=== PATIENT | male | born 1995 | race Caucasian/White ===

== ENCOUNTER 2020-02-26 18:59 | Emergency (ER) | payer MEDICAID, OTHER ==
[~2020-02-26] VITALS: Ht 200.7 cm; Wt 144.3 kg
[2020-02-26] MEDS ORDERED: normal saline 1000ML IV soln IVB ONE (19:05)
[2020-02-26] MEDS ORDERED: LORazepam 2 mg/ml vial IV ONE (19:05)
[2020-02-26 19:26] LABS: BASOPHILS # (AUTO) 0.1 X10'3 (0-0.2); BASOPHILS % (AUTO) 0.9 % (0-1); EOSINOPHILS # (AUTO) 0.1 X10'3 (0-0.9); EOSINOPHILS % (AUTO) 1.1 % (0-6); HEMATOCRIT 44.9 % (42.0-52.0); HEMOGLOBIN 15.5 g/dl (14.0-17.9); LYMPHOCYTES # (AUTO) 2.7 X10'3 (1.1-4.8); LYMPHOCYTES % (AUTO) 23.9 % (21-51); MEAN CORPUSCULAR HEMOGLOBIN 30.7 PG (27.0-31.0); MEAN CORPUSCULAR HGB CONC 34.6 g/dL (33.0-36.5); MEAN CORPUSCULAR VOLUME 88.8 FL (78-98); MEAN PLATELET VOLUME 7.7 FL (7.4-10.4); MONOCYTES # (AUTO) 0.7 X10'3 (0-0.9); MONOCYTES % (AUTO) 6.2 % (2-12); NEUTROPHILS # (AUTO) 7.7 X10'3 (1.8-7.7); NEUTROPHILS % (AUTO) 67.9 % (42-75); PLATELET COUNT 349 X10'3 (140-440); RED BLOOD COUNT 5.06 X10'6 (4.70-6.10); RED CELL DISTRIBUTION WIDTH 14.7 % (11.5-14.5); WHITE BLOOD COUNT 11.4 X10'3 (4.5-11.0)
--- NOTE | 2020-02-26 19:30 | NUR ---
PT WITH HR OF 150'S, AND RR 40, [place]IL[place] AWARE. GIVEN ATIVAN 1 MG 10 MIN AGO. 1 LITER NS INFUSING. PT IS A&OX4. REPORTS HX OF ANXIETY AND DEPRESSION AND HX OF FAST HR. TAKES NO MEDS.
[2020-02-26] MEDS ORDERED: NO HOME MEDS (19:31)
[2020-02-26 19:42] LABS: ALANINE AMINOTRANSFERASE 24 U/L (12-78); ALBUMIN 4.7 G/DL (3.4-5.0); ALBUMIN/GLOBULIN RATIO 1.3 (1.1-1.5); ALKALINE PHOSPHATASE 73 IU/L (46-116); ANION GAP 9 (8-16); ASPARTATE AMINO TRANSFERASE 22 U/L (10-37); BLOOD UREA NITROGEN 22 MG/DL (7-18); CALCIUM 10.8 MG/DL (8.5-10.1); CHLORIDE 102 MMOL/L (99-107); CREATININE 1.47 MG/DL (0.60-1.10); GLUCOSE 122 MG/DL (70-104); POTASSIUM 3.8 MMOL/L (3.5-5.1); SODIUM 133 MMOL/L (135-145); TOTAL CARBON DIOXIDE 21.6 MMOL/L (24-32); TOTAL PROTEIN 8.2 G/DL (6.4-8.2); eGFR 59 ML/MIN
[2020-02-26 20:19] LABS: URINE AMPHETAMINE SCREEN POSITIVE (Neg); URINE BARBITUATE SCREEN NEGATIVE (Neg); URINE BENZODIAZEPINES SCREEN NEGATIVE (Neg); URINE CANNABINOID SCREEN POSITIVE (Neg); URINE COCAINE SCREEN NEGATIVE (Neg); URINE METHADONE SCREEN NEGATIVE (Neg); URINE OPIATE SCREEN NEGATIVE (Neg); URINE PHENCYCLIDINE SCREEN NEGATIVE (Neg)
[2020-02-26 20:58] VITALS: BP 144/82
== END 2020-02-26 21:01 | disposition home or self-care (01) ==
LOC: ER 18:59
DX: F19.10 Other psychoactive substance abuse, uncomplicated (principal); R07.89 Other chest pain; F12.90 Cannabis use, unspecified, uncomplicated; F41.9 Anxiety disorder, unspecified
CPT/HCPCS: 36415; 71045; 80053; 80305; 85025; 93005; 96374; 99285; J2060; J7030

== ENCOUNTER 2020-06-25 08:48 | Emergency (ER) | payer MEDICAID, OTHER ==
[~2020-06-25] VITALS: Ht 205.7 cm; Wt 68.2 kg
[~2020-06-25 08:48] MED LIST: NO HOME MEDS
[2020-06-25] MEDS ORDERED: haloperidol lactate 5mg/ml inj IM ONE (09:00)
[2020-06-25] MEDS ORDERED: diphenhydrAMINE 50 mg/ml inj IM ONE (09:00)
[2020-06-25] MEDS ORDERED: ondansetron 4mg rapidly disintigrating tab PO ONE (09:00)
[2020-06-25] MEDS ORDERED: ONDA8TAB6 PO (09:43)
[2020-06-25 10:16] VITALS: BP 105/68
== END 2020-06-25 10:18 | disposition home or self-care (01) ==
LOC: ER 08:48
DX: R11.2 Nausea with vomiting, unspecified (principal); R10.11 Right upper quadrant pain; R06.02 Shortness of breath; F17.200 Nicotine dependence, unspecified, uncomplicated; F12.90 Cannabis use, unspecified, uncomplicated; Z79.899 Other long term (current) drug therapy
CPT/HCPCS: 96372; 99284; J1200; J1630

== ENCOUNTER 2022-08-10 13:39 | Emergency (ER) | payer MEDICAID ==
[~2022-08-10] VITALS: Ht 185.4 cm; Wt 77.3 kg
[~2022-08-10 13:39] MED LIST changes: +ONDA8TAB6 PO
[2022-08-10 13:44] VITALS: BP 104/52
[2022-08-10] MEDS ORDERED: IBUP-1986 PO (14:27)
[2022-08-10] MEDS ORDERED: ibuprofen tablet 400 MG TABLET PO ONE (14:55)
== END 2022-08-10 15:01 | disposition home or self-care (01) ==
LOC: ER 13:40
DX: R07.81 Pleurodynia (principal); Z87.81 Personal history of (healed) traumatic fracture
CPT/HCPCS: 71045; 99283

== ENCOUNTER 2023-12-30 15:17 | Emergency (ER) | payer MEDICAID ==
[~2023-12-30 15:17] MED LIST changes: +IBUP-1986 PO
== END 2023-12-30 17:58 | disposition left against medical advice (07) ==
LOC: ER 15:18
DX: R51.9 Headache, unspecified (principal); Z53.21 Procedure and treatment not carried out due to patient leaving prior to being seen by health care provider